=== PATIENT | male | born 1985 ===

== ENCOUNTER 2024-08-24 14:55 | Emergency (ER) | payer MEDICAID ==
[~2024-08-24] VITALS: Ht 180.3 cm; Wt 95.0 kg
[2024-08-24 14:58] VITALS: BP 132/78; PULSE 80; RESP 16; O2SAT 98
[2024-08-24] MEDS ORDERED: NEOM10SO7 RIGHT EAR (15:46)
[2024-08-24 16:01] VITALS: TEMP 98.9
== END 2024-08-24 16:02 | disposition home or self-care (01) ==
LOC: ER 14:56
DX: T16.1XXA Foreign body in right ear, initial encounter (principal); H60.91 Unspecified otitis externa, right ear; Z88.1 Allergy status to other antibiotic agents; W44.F9XA Other object of natural or organic material, entering into or through a natural orifice, initial encounter; Y93.89 Activity, other specified; Y92.89 Other specified places as the place of occurrence of the external cause; Y99.8 Other external cause status
CPT/HCPCS: 69200; 99284